=== PATIENT | female | born 1980 | race Caucasian/White ===

== ENCOUNTER 2023-04-23 23:17 | Emergency (ER) | payer MEDICAID ==
[~2023-04-23] VITALS: Ht 167.6 cm; Wt 95.4 kg
[2023-04-23 23:30] VITALS: BP 141/59; PULSE 75; RESP 12; TEMP 98.9; O2SAT 99
[2023-04-24 00:24] LABS: CLARITY URINE CLOUDY (CLEAR); COLOR URINE YELLOW (YELLOW); KETONES URINE TRACE (NEGATIVE); LEUKOCYTE ESTERASE URINE NEGATIVE (NEGATIVE); NITRITE URINE NEGATIVE (NEGATIVE); OCCULT BLOOD URINE NEGATIVE (NEGATIVE); PH URINE 5.5 (4.5-8.0); PROTEIN URINE TRACE (NEGATIVE); SPECIFIC GRAVITY URINE 1.021 (1.005-1.030); UROBILINOGEN URINE 0.2 E.U./dL (0.2-1.0)
[2023-04-24 00:29] LABS: BASOPHILS % 0.2 % (0.0-2.0); EOSINOPHILS % 0.7 % (0.0-5.0); HEMATOCRIT. 32.7 % (36.0-48.0); HEMOGLOBIN. 10.4 g/dL (12.0-16.0); LYMPHOCYTES % 18.3 % (20.0-50.0); MEAN CORPUSCULAR HEMOGLOBIN 21.3 pg (28.0-32.0); MEAN CORPUSCULAR VOLUME 66.8 fL (81.0-99.0); MEAN PLATELET VOLUME 7.7 fl (7.4-10.4); MONOCYTES % 5.6 % (2.0-8.0); NEUTROPHILS % 75.2 % (40.0-76.0); PLATELET 327 x1000/uL (130-400); RED BLOOD CELL COUNT 4.89 mill/uL (4.2-5.4); RED CELL DISTRIBUTION WIDTH 19.6 % (11.6-14.6)
[2023-04-24 00:41] LABS: CHLORIDE 106 mEq/L (98-107)
[2023-04-24 05:32] LABS: UCG SCREEN NEGATIVE
[2023-04-24] MEDS ORDERED: MAGNESIUM/ALUMINUM HYDROXIDE/SIMETHICONE 30ML UDC PO ONE (07:00)
[2023-04-24] MEDS ORDERED: ONDANSETRON 4MG ODT PO ONE (07:00)
[2023-04-24 07:38] LABS: PLATELET ESTIMATE NORMAL
[2023-04-24] MEDS ORDERED: ONDA4TAB50 MT (08:16)
== END 2023-04-24 08:52 | disposition home or self-care (01) ==
LOC: ER 23:17
DX: R11.2 Nausea with vomiting, unspecified (principal)
CPT/HCPCS: 99283; 81003; 81025; 36415; 80053; 83690; 85025; Q0162